=== PATIENT | female | born 1940 | race Caucasian/White ===

== ENCOUNTER → 2016-06-24 | Outpatient (CLI) | payer OTHER ==
[2016-06-24 10:41] LABS: HEMATOCRIT 33.1 % (37.0-47.0); HEMOGLOBIN 11.1 g/dL (12.0-16.0); MEAN CORPUSCULAR HEMOGLOBIN 32.8 PG (27-31); MEAN CORPUSCULAR HGB CONC 33.5 g/dL (33-37); MEAN PLATELET VOLUME 9.6 FL (7.4-12.2); RDW COEFFICIENT OF VARIATION 14.9 % (11.5-14.5); RED BLOOD COUNT 3.38 10^6/uL (4.20-5.40); WHITE BLOOD COUNT 3.04 10^3/uL (4.8-10.8)
[2016-06-24 10:55] LABS: BILIRUBIN,TOTAL 1.3 mg/dL (0.3-1.2); BUN/CREATININE RATIO 28.88 (6-20); CREATININE 0.9 mg/dL (0.50-1.20); POTASSIUM 3.8 meq/L (3.8-5.2); TOTAL PROTEIN 6.2 g/dL (6.1-8.0)
== END ==
LOC: LAB 10:24
PROVIDERS: ATTEND Internal Medicine Hematology & Oncology
DX: C50.912 Malignant neoplasm of unspecified site of left female breast (principal)
CPT/HCPCS: 36415; 80053; 85027

== ENCOUNTER → 2016-07-01 | Outpatient (CLI) | payer OTHER ==
[2016-07-01 11:10] LABS: HEMOGLOBIN 10.3 g/dL (12.0-16.0); RED BLOOD COUNT 3.16 10^6/uL (4.20-5.40); WHITE BLOOD COUNT 6.44 10^3/uL (4.8-10.8)
[2016-07-01 11:11] LABS: HEMATOCRIT 31.5 % (37.0-47.0); MEAN CORPUSCULAR HEMOGLOBIN 32.6 PG (27-31); MEAN CORPUSCULAR HGB CONC 32.7 g/dL (33-37); MEAN PLATELET VOLUME 9.2 FL (7.4-12.2); RDW COEFFICIENT OF VARIATION 15.5 % (11.5-14.5)
[2016-07-01 11:27] LABS: BILIRUBIN,TOTAL 0.6 mg/dL (0.3-1.2); CALCIUM 8.2 mg/dL (8.7-10.7); POTASSIUM 3.7 meq/L (3.8-5.2); TOTAL PROTEIN 6.2 g/dL (6.1-8.0)
== END ==
LOC: LAB 10:12
PROVIDERS: ATTEND Internal Medicine Hematology & Oncology
DX: C50.912 Malignant neoplasm of unspecified site of left female breast (principal)
CPT/HCPCS: 36415; 80053; 85027